=== PATIENT | female | born 1955 | race Caucasian/White ===

== ENCOUNTER 2018-10-24 05:30 | Day surgery (SDC) | payer OTHER, MEDICARE ==
[~2018-10-24] VITALS: Ht 152.4 cm; Wt 103.9 kg
[~2018-10-24 05:30] MED LIST: BIOT10005 PO; CARV6.25 PO; ISOS20TA7 PO; MULT-1258 PO; OLME40TA18 PO; RIVA20TA PO; SIMV20TA6 PO; SITA50TA PO; UBID100C10 PO; VITA1CAP PO; VITAMIN D
[2018-10-24] MEDS ORDERED: SODIUM CHLORIDE 0.9% 1000ML 1,000 ML IV ONE (05:50)
[2018-10-24 05:58] VITALS: BP 107/61
[2018-10-24] MEDS ORDERED: INSU300I SQ (06:20)
[2018-10-24] MEDS ORDERED: PROPOFOL 1000 MG/100 ML 100 ML IV ONE (07:24)
[2018-10-24] MEDS ORDERED: GLYCOPYRROLATE 0.2 MG/ML 5 ML VIAL ONE (07:26)
[2018-10-24] MEDS ORDERED: LIDOCAINE HCL 2% 20ML ONE (07:26)
[2018-10-24 07:54] VITALS: BP 109/65
[2018-10-24 07:59] VITALS: BP 117/66
[2018-10-24 08:04] VITALS: BP 115/66
[2018-10-24 08:09] VITALS: BP 118/66
--- NOTE | 2018-10-24 08:20 | NUR ---
DC PT DC HOME VIA WC , NO DISTRESS NOTED ACCOMPANIED BY COUSIN ,
== END 2018-10-24 08:20 | disposition home or self-care (01) ==
LOC: ENDO 05:30 → DAH 05:30 → ENDO 08:20
PROVIDERS: ATTEND Internal Medicine
DX: D12.2 Benign neoplasm of ascending colon (principal); K29.50 Unspecified chronic gastritis without bleeding; K21.0 Gastro-esophageal reflux disease with esophagitis; K31.89 Other diseases of stomach and duodenum; K57.30 Diverticulosis of large intestine without perforation or abscess without bleeding; K64.0 First degree hemorrhoids; I12.9 Hypertensive chronic kidney disease with stage 1 through stage 4 chronic kidney disease, or unspecified chronic kidney disease; E11.22 Type 2 diabetes mellitus with diabetic chronic kidney disease; N18.9 Chronic kidney disease, unspecified; M19.90 Unspecified osteoarthritis, unspecified site; E78.5 Hyperlipidemia, unspecified; I25.118 Atherosclerotic heart disease of native coronary artery with other forms of angina pectoris; Z90.3 Acquired absence of stomach [part of]; Z79.4 Long term (current) use of insulin; Z79.899 Other long term (current) drug therapy; Z79.01 Long term (current) use of anticoagulants; Z79.82 Long term (current) use of aspirin; Z85.3 Personal history of malignant neoplasm of breast; Z98.890 Other specified postprocedural states
CPT/HCPCS: 43239; 45385; 82948 ×2; 88305; 93005; A4606; J2704; J3490 ×2; J7030

== ENCOUNTER → 2021-11-17 | Outpatient (CLI) | payer OTHER, MEDICARE ==
[~2021-11-17] MED LIST changes: +INSU300I SQ; -ISOS20TA7 PO; +ISOS20TA85 PO; +SIMV-43 PO; -SIMV20TA6 PO
== END | disposition home or self-care (01) ==
LOC: RAH 10:21
PROVIDERS: ATTEND Surgery
DX: R63.5 Abnormal weight gain (principal); M47.816 Spondylosis without myelopathy or radiculopathy, lumbar region; Z98.890 Other specified postprocedural states
CPT/HCPCS: 74176